=== PATIENT | male | born 1965 | race Caucasian/White ===

== ENCOUNTER 2018-10-25 11:52 | Day surgery (SDC) | payer OTHER ==
[2018-10-25] MEDS ORDERED: DIPHENHYDRAMINE HCL 50 MG/ML VIAL ONE (12:07)
[2018-10-25] MEDS ORDERED: NALOXONE HCL INJ/PF 0.4 MG/1 ML SDV ONE (12:08)
[2018-10-25] MEDS ORDERED: ONDANSETRON HCL INJ/PF 4 MG/2 ML SDV ONE (12:08)
[2018-10-25] MEDS ORDERED: FLUMAZENIL INJ 0.5 MG/5 ML VIAL ONE (12:08)
[2018-10-25] MEDS ORDERED: GLUCAGON,HUMAN RECOMB 1 MG INJ ONE (12:09)
[2018-10-25] MEDS ORDERED: EPINEPHRINE INJ 1 MG/10 ML DISP.SYRIN ONE (12:09)
[2018-10-25] MEDS: MIDAZOLAM 2 MG/2 ML INJ ONE ×2 (13:18→13:23)
[2018-10-25] MEDS: FENTANYL CITRATE INJ/PF 100 MCG/2 ML AMPUL ONE ×2 (13:20→13:25)
--- NOTE | 2018-10-25 13:42 | Operative Report ---
Operative Report DATE OF SURGERY: 10/25/18 Operative Report: The risks benefits and alternatives of the procedure explained to the patient in detail and informed consent is obtained.A GIF Olympus video scope was inserted into the patient's mouth and hypopharynx, the esophagus is identified intubated and insufflated ,the scope was then advanced through the esophagus stomach and duodenum ,retroflexion maneuver is done, the esophagus stomach and first and second portions of the duodenum examined. PREOPERATIVE DIAGNOSIS: Gastroesophageal reflux disease POSTOPERATIVE DIAGNOSIS: Esophagitis versus Barr's status post biopsy. Gastritis status post biopsy without Helicobacter pylori OPERATION: EGD with biopsy SURGEON: CRISTÓBAL MAN ANESTHESIA: Moderate Sedation TISSUE REMOVED OR ALTERED: As noted above. COMPLICATIONS: None. ESTIMATED BLOOD LOSS: None. INTRAOPERATIVE FINDINGS: As noted above. PROCEDURE: Patient tolerated the procedure well. No immediate postprocedure comp occasions are noted. Patient discharged in good condition. Discharge date 10/25/2018. Discharge diet: Regular. Discharge activity: Regular. 2 to 3-week follow-up to discuss findings. Patient is instructed to call the office or proceed to the emergency room should there be any further problems or questions. Wait on the pathology.
[2018-10-25 14:41] VITALS: BP 124/74
== END 2018-10-25 14:45 | disposition home or self-care (01) ==
LOC: END 11:52
PROVIDERS: ATTEND Internal Medicine Gastroenterology
DX: K21.0 Gastro-esophageal reflux disease with esophagitis (principal); K29.50 Unspecified chronic gastritis without bleeding
CPT/HCPCS: 43239; 88342 ×2; 88305 ×2; J2250; J3010; J0171; J1200; J1610; J2310; J2405; J3490